=== PATIENT | male | born 1965 | race Caucasian/White ===

== ENCOUNTER 2018-10-22 16:12 | Emergency (ER) | payer OTHER ==
[~2018-10-22] VITALS: Ht 172.7 cm; Wt 102.3 kg
[2018-10-22 16:12] VITALS: BP 136/82
--- NOTE | 2018-10-22 17:00 | REP ---
CT BRAIN WITHOUT CONTRAST: 10/22/2018. Clinical history: Rule out CVA. Findings: Noncontrast CT with soft tissue and bone window settings for each slice level reviewed. Lateral ventricles are midline, symmetric and without dilatation or displacement. Their size is proportionate to the mildly prominent sulci. Third and fourth ventricles also proportionate. The bilateral basal ganglia were symmetric and normal. Yi white junction differentiation is well maintained. I see no vascular territory infarct, intra or extra-axial hemorrhage, mass, mass effect or edema. No extra-axial fluid collections. Brainstem was intact. Cerebellum without acute finding. No posterior fossa hemorrhage. Basal cisterns are intact. Visualized mastoids and sinuses are clear. There is no fracture of the skull base or calvarium. No destructive lesion. Impression: 1. No acute infarct, intracranial hemorrhage, mass, mass effect or edema. Very minimal sulcal prominence with proportionate ventricular size. Nothing acute. 2. Skull base, calvarium, visualized sinuses and mastoids unremarkable. Electronically Signed by Wyatt Gill MD 10/22/2018 05:56 P
== END 2018-10-22 17:21 | disposition home or self-care (01) ==
LOC: M ED 16:12
DX: S00.03XA Contusion of scalp, initial encounter (principal); W17.89XA Other fall from one level to another, initial encounter; Y92.89 Other specified places as the place of occurrence of the external cause; Y93.9 Activity, unspecified; Y99.9 Unspecified external cause status

== ENCOUNTER → 2025-04-28 | Outpatient (REF) | LOC: M LAB 12:06 | PROVIDERS: ATTEND Family Medicine | DX: Z13.9 Encounter for screening, unspecified (principal) ==